=== PATIENT | male | born 1985 | race Two or more races ===

== ENCOUNTER 2022-05-25 09:11 | Inpatient (IN) | payer MEDICAID, OTHER ==
[~2022-05-25] VITALS: Ht 175.3 cm; Wt 93.0 kg
[2022-05-25] MEDS ORDERED: MORPHINE SULFATE 4 MG/ML SYR/VIAL IM ONE (10:15)
[2022-05-25] MEDS ORDERED: ONDANSETRON ODT 4 MG TAB PO ONE (10:15)
[2022-05-25 12:08] LABS: Basophils # (auto) 0.1 10 ^3/uL (0-0.2); Basophils % (auto) 0.5 % (0.0-2.0); Eosinophils # (auto) 0 10 ^3/uL (0-0.8); Eosinophils % (auto) 0.1 % (0.0-7.0); Hematocrit 45.8 % (41.0-53.0); Hemoglobin 15.4 g/dL (13.5-17.5); Lymphocytes # (auto) 1.2 10 ^3/uL (0.4-5.4); Mean Corpuscular Hemoglobin 30.1 pg (28.0-32.0); Mean Corpuscular Hgb Conc. 33.6 g/dL (32.0-36.0); Mean Corpuscular Volume 89.6 fL (80.0-100.0); Monocytes # (auto) 0.9 10 ^3/uL (0-1.3); Monocytes % (auto) 5.9 % (0.0-12.0); Neutrophils # (auto) 12.4 10 ^3/uL (1.6-8.6); Neutrophils % (auto) 85.5 % (37.0-80.0); Red Blood Cells 5.11 10^6/uL (4.5-5.90); Red Cell Distribution Width 13.6 % (11.8-14.3); White Blood Cell 14.5 10^3/uL (4.4-10.8)
[2022-05-25 12:22] LABS: Albumin 3.8 g/dL (3.4-5.0)
[2022-05-25 12:26] LABS: Bilirubin, Total 0.7 mg/dL (0.2-1.0); Total Protein 7.7 g/dL (6.4-8.2)
[2022-05-25] MEDS ORDERED: ACETAMINOPHEN 325 MG TAB PO PRN (14:30)
[2022-05-25] MEDS ORDERED: KETOROLAC TROMETH 30 MG/ML 1ML VIAL IV ONE (14:30)
[2022-05-25 14:59] LABS: Cholesterol 154 mg/dL (< 200); HDL Cholesterol 38 mg/dL (40-59); LDL Cholesterol 104 mg/dL (< 100); Triglycerides 184 mg/dL (< 150)
[2022-05-25] MEDS: SODIUM CHLORIDE 0.9% 1,000 ML IV SCH (15:12)
[2022-05-25 15:14] LABS: Urine Specific Gravity 1.017 (1.001-1.035)
[2022-05-25 15:15] LABS: Urine Blood Negative /uL (Negative)
[2022-05-25 17:01] LABS: INR 0.99 (0.9-1.15)
[2022-05-25] MEDS: KETOROLAC TROMETH 30 MG/ML 1ML VIAL IV PRN (22:33)
[2022-05-25 22:49] VITALS: BP 115/71
[2022-05-26 05:00] VITALS: BP 115/69
[2022-05-26 05:27] LABS: Basophils # (auto) 0 10 ^3/uL (0-0.2); Basophils % (auto) 0.5 % (0.0-2.0); Eosinophils # (auto) 0.1 10 ^3/uL (0-0.8); Eosinophils % (auto) 1.3 % (0.0-7.0); Hemoglobin 15.5 g/dL (13.5-17.5); Lymphocytes # (auto) 2.4 10 ^3/uL (0.4-5.4); Lymphocytes % (auto) 28.1 % (10.0-50.0); Mean Corpuscular Hemoglobin 30.7 pg (28.0-32.0); Mean Corpuscular Hgb Conc. 34.4 g/dL (32.0-36.0); Mean Corpuscular Volume 89.3 fL (80.0-100.0); Monocytes % (auto) 10.9 % (0.0-12.0); Neutrophils # (auto) 5.2 10 ^3/uL (1.6-8.6); Neutrophils % (auto) 59.2 % (37.0-80.0); Nucleated Red Blood Cells % 0.1 %; Red Blood Cells 5.04 10^6/uL (4.5-5.90); Red Cell Distribution Width 13.7 % (11.8-14.3); White Blood Cell 8.7 10^3/uL (4.4-10.8)
[2022-05-26] MEDS: SODIUM CHLORIDE 0.9% 1,000 ML IV SCH (05:32)
[2022-05-26 05:40] LABS: Albumin 3.6 g/dL (3.4-5.0); Calcium 8.8 mg/dL (8.5-10.1); Potassium 4.3 mmol/L (3.5-5.1)
[2022-05-26 05:43] LABS: BUN/Creatinine Ratio 21.2
[2022-05-26 05:46] LABS: Bilirubin, Total 0.9 mg/dL (0.2-1.0); Total Protein 6.9 g/dL (6.4-8.2)
[2022-05-26 08:30] VITALS: BP 109/63
[2022-05-26] MEDS: ENOXAPARIN SOD 40 MG/0.4 ML SYRINGE SC SCH (09:42)
[2022-05-26] MEDS: KETOROLAC TROMETH 30 MG/ML 1ML VIAL IV PRN (09:47)
[2022-05-26 12:30] VITALS: BP 137/83
[2022-05-26] MEDS: methylPREDNISolone SOD SUCC 125 MG/2 ML VL IV SCH ×2 (13:59→21:29)
[2022-05-26] MEDS: HYDROcodone-ACET 5/325MG TAB PO PRN ×2 (14:00→17:53)
[2022-05-26] MEDS ORDERED: ERGOCALCIFEROL 50,000 UNIT(1.25MG) CAP PO SCH (16:15)
[2022-05-26 16:30] VITALS: BP 128/76
[2022-05-26 22:00] VITALS: BP 114/60
[2022-05-27 05:00] VITALS: BP 116/67
[2022-05-27] MEDS: methylPREDNISolone SOD SUCC 125 MG/2 ML VL IV SCH (05:13)
[2022-05-27] MEDS: HYDROcodone-ACET 5/325MG TAB PO PRN (08:51)
[2022-05-27] MEDS: ENOXAPARIN SOD 40 MG/0.4 ML SYRINGE SC SCH (08:51)
[2022-05-27 09:00] VITALS: BP 119/70
[2022-05-27] MEDS ORDERED: METH4PAK PO (11:57)
[2022-05-27] MEDS ORDERED: ERGO1CAP23 PO (11:57)
[2022-05-27] MEDS ORDERED: BACL10TA PO (11:57)
== END 2022-05-27 14:22 | disposition home or self-care (01) | DRG 347 ==
LOC: ER 09:11 → OVERFLOW 14:21 → WEST WING 22:15
PROVIDERS: ADMIT Nurse Practitioner Family; ATTEND Internal Medicine
DX: M51.27 Other intervertebral disc displacement, lumbosacral region (principal); E55.9 Vitamin D deficiency, unspecified; E66.01 Morbid (severe) obesity due to excess calories; M54.18 Radiculopathy, sacral and sacrococcygeal region; G62.9 Polyneuropathy, unspecified; G89.29 Other chronic pain; Z20.822 Contact with and (suspected) exposure to COVID-19; Z68.30 Body mass index [BMI] 30.0-30.9, adult; Z83.3 Family history of diabetes mellitus
CPT/HCPCS: 36415; 71045; 72131; 72148; 80053; 80061; 81003; 82306; 82607; 83036; 84443; 85025; 85610; 85730; 86850; 86900; 86901; 87426; 96361; 96372; 96374; 97163; G0378; J1885; Q0162